=== PATIENT | male | born 1950 | race American Indian/Alaskan Native ===

== ENCOUNTER 2017-07-25 16:19 | Emergency (ER) | payer SELFPAY ==
--- NOTE | 2017-07-25 17:31 | XRay Report ---
FINAL REPORT EXAM: XR HAND 3+V RT HISTORY: deformity to right index finger.fell down stairs TECHNIQUE: AP, lateral, and oblique views of the right hand PRIORS: None. FINDINGS: There is an acute dislocation involving the 2nd proximal interphalangeal joint. The middle phalanx is displaced dorsally and slightly overrides the proximal phalanx. There is an acute avulsion fracture involving the base of the 2nd middle phalanx along the volar aspect. Overlying soft tissue swelling is seen. No radiopaque foreign bodies are seen. IMPRESSION: Acute dislocation involving the 2nd proximal interphalangeal joint. There is an avulsion fracture involving the volar base of the 2nd middle phalanx.
--- NOTE | 2017-07-25 23:48 | Emergency Department Report ---
ED Fall HPI - General Chief Complaint: Extremity Injury, Upper Stated Complaint: RIGHT INDEX FINGER INJURED Time Seen by Provider: 07/25/17 23:33 Source: patient, family Mode of arrival: Ambulatory Limitations: Other (the patient is demented. The patient is a poor historian. 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 Patient's believes the fall happened at approximately 4: 00 PM on July 25. No other complaints, patient's indicates no loss of consciousness, nausea, vomiting or any other symptom with the exception of right finger pain, sources at the patient appears to be his normal mental status. MD Complaint: fall -: Sudden Fall From: other (unknown) When Fall Occurred: just prior to arrival Fall Witnessed: no Place Fall Occurred: home Loss of Consciousness: unsure Symptoms Prior to Fall: other (unknown) Location: other (right hand/pointer finger) Location - Extremities: Right: Hand Severity: Unable to Determine (patient unable to describe exacerbating or relieving factors) Quality: other (per hpi) Context: other (per hpi) Associated Symptoms: other (per hpi) - Related Data Allergies Allergy/AdvReac Type Severity Reaction Status Date / Time No Known Allergies Allergy Unverified 07/25/17 16:37 ED Review of Systems ROS: Stated complaint: RIGHT INDEX FINGER INJURED Other details as noted in HPI ED Past Medical Hx - Past Medical History Additional medical history: dementia - Surgical History Past Surgical History?: No - Social History Smoking Status: Former Smoker Substance Use Type: None ED Physical Exam - General Limitations: Physical Limitation General appearance: alert, in no apparent distress - Head Head exam: Present: atraumatic, normocephalic - Eye Eye exam: Present: normal appearance, EOMI - ENT ENT exam: Present: normal exam, normal orophraynx, mucous membranes moist, normal external ear exam - Neck Neck exam: Present: normal inspection, full ROM. Absent: tenderness, meningismus - Respiratory Respiratory exam: Present: normal lung sounds bilaterally. Absent: respiratory distress - Cardiovascular Cardiovascular Exam: Present: regular rate, normal rhythm, normal heart sounds. Absent: bradycardia, tachycardia, irregular rhythm, systolic murmur, diastolic murmur, rubs, gallop - GI/Abdominal GI/Abdominal exam: Present: soft, normal bowel sounds. Absent: distended, tenderness, guarding, rebound, rigid, pulsatile mass - Rectal Rectal exam: Present: deferred - Extremities Exam Extremities exam: Present: normal capillary refill. Absent: normal inspection ( knee right pointer finger has a dorsal dislocation that is tender. 2+ pulses noted in the bilateral upper extremities. There is a left anterior knee abrasion. The pelvis is stable. There is no long bony tenderness.), tenderness (there is a left upper extremity arm contracture which is chronic), pedal edema, joint swelling, calf tenderness - Back Exam Back exam: Present: normal inspection, full ROM. Absent: tenderness, CVA tenderness (R), paraspinal tenderness, vertebral tenderness - Neurological Exam Neurological exam: Present: alert, other (Extraocular movements intact. Tongue midline. No facial droop. Facial sensation intact to light touch in the V1, V2 , V3 distribution bilaterally. 5 and 5 strength in 4 extremities.. Sensation is intact to light touch in 4 extremities.). Absent: motor sensory deficit - Psychiatric Psychiatric exam: Present: normal affect, normal mood - Skin Skin exam: Present: warm, dry, intact, normal color. Absent: rash ED Course Vital Signs 07/25/17 16:37 Temperature 98.1 F Pulse Rate 70 Respiratory 16 Rate Blood Pressure 164/87 O2 Sat by Pulse 100 Oximetry - Reevaluation(s) Reevaluation #1: 07/26/17 00:48 Differential diagnosis, including not limited to: Right index finger dislocation , mechanical fall, intracranial injury Assessment and plan: 67-year-old male who is minimally verbal, demented, status post unwitnessed fall, has been observed in the ER for about 8 hours after the fall, a noncontrast CT scan of the brain was negative, his endorses that he appears to be at his baseline, and the right pointer/index finger dislocation was reduced, and placed in a splint, early mobilization is recommended to follow-up with outpatient orthopedist. - Procedure Description Procedures done: Gentle digital and distal traction was applied to the right pointer finger, and the dislocated phalanx was reduced with a clunk. The patient tolerated the procedure well. ED Medical Decision Making - Lab Data Vital Signs 07/25/17 16:37 Temperature 98.1 F Pulse Rate 70 Respiratory 16 Rate Blood Pressure 164/87 O2 Sat by Pulse 100 Oximetry - Radiology Data Radiology results: report reviewed, image reviewed interpreted by me: Noncontrast CT scan of the brain is negative, interpreted by radiology noncontrast CT scan of the brain is negative. Initial x-ray of the right hand demonstrates a volar avulsion fracture over the second middle phalanx, and a dorsal dislocation of the index finger at the proximal interphalangeal joint. Postreduction x-ray demonstrates appropriate reduction of the index finger. Critical care attestation.: If time is entered above; I have spent that time in minutes in the direct care of this critically ill patient, excluding procedure time. ED Disposition Clinical Impression: Finger dislocation, History of fall Disposition: TO HOME OR SELFCARE Is pt being admited?: No Does the pt Need Aspirin: No Condition: Stable Instructions: Fall Prevention (ED), Finger Dislocation (ED) Additional Instructions: Keep the finger splint in place. Follow up with an orthopedist within 5-7 days. Continue current outpatient medications. Return to the ER right away with fevers, chills, lethargy, irritability, projectile vomiting, change in mental status, confusion, inability to tolerate liquid feeds Referrals: JADEN COOL MD [Primary Care Provider] - 3-5 Days UNA LOWE MD [Staff Physician] - 3-5 Days
--- NOTE | 2017-07-26 00:14 | Cat Scan Report ---
FINAL REPORT EXAM: CT HEAD/BRAIN WO CON HISTORY: fall, dementia TECHNIQUE: CT evaluation was performed of the head without the use of intravenous contrast administration. PRIORS: None. FINDINGS: Mild diffuse periventricular white matter hypodensity compatible with chronic small vessel ischemic change. Mild diffuse brain parenchymal atrophy, with mild prominence of the CSF-containing spaces is likely secondary to atrophy. No hemorrhage, mass effect,or herniation. Atherosclerotic calcifications in the distal internal carotid and vertebral arteries. No calvarial lesions. IMPRESSION: No CT evidence of acute intracranial process or displaced skull fracture. CT findings compatible with chronic small vessel ischemic disease.
--- NOTE | 2017-07-26 00:40 | XRay Report ---
FINAL REPORT EXAM: XR FINGER(S) 2+V RT HISTORY: post reduction; rt 2nd finger TECHNIQUE: Two views of the right hand: AP and lateral projections. PRIORS: Radiographs dated 07/25/2017 at 1050 hours. FINDINGS: Interval relocation of the index finger proximal interphalangeal joint. A volar avulsion fracture is noted. Suggested involvement or approximately 25 percent of the volar articular surface of the middle phalanx. The remaining articular surfaces intact. Concomitant soft tissue swelling. 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 Additional moderate degenerative changes of the distal radial ulnar joint mild degenerative changes of the interphalangeal joints. Corticated ossicle at the ulnar margin of the proximal 5th metacarpal. IMPRESSION: Interval relocation of the index finger proximal interphalangeal joint, weapons officer is now anatomic. Volar avulsion seen on the prior exam again noted and there is concomitant soft tissue swelling. 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
[2017-07-26 00:59] VITALS: BP 159/82
== END 2017-07-26 00:59 | disposition home or self-care (01) ==
LOC: ED 16:19
DX: S63.280A Dislocation of proximal interphalangeal joint of right index finger, initial encounter (principal); F03.90 Unspecified dementia, unspecified severity, without behavioral disturbance, psychotic disturbance, mood disturbance, and anxiety; Z87.891 Personal history of nicotine dependence; W18.30XA Fall on same level, unspecified, initial encounter; Y93.89 Activity, other specified; Y99.8 Other external cause status; Y92.098 Other place in other non-institutional residence as the place of occurrence of the external cause
CPT/HCPCS: 70450

== ENCOUNTER 2017-08-07 14:47 | Emergency (ER) | payer OTHER ==
[2017-08-07] MEDS ORDERED: NACL 0.9% 1000 ML 1,000 ML IV ONE (15:21)
[2017-08-07] MEDS ORDERED: KEPPRA 1,000 MG/NS 0.75% 100ML 1,000 MG/100 ML BAG IV ONE (15:21)
--- NOTE | 2017-08-07 15:28 | Emergency Department Report ---
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 The patient is accompanied by his who provides recent history. She reports that approximately 30 minutes to 1 hour prior to arrival, while driving home from the store, the patient suddenly exhibited shaking/seizure-like activity, severe, lasting for 10-15 seconds, several resolving, and associated with subsequent disorientation and confusion. She states that the patient's symptoms have improved with time, and the patient is nearly back to baseline. The patient denies fever, head injury, headache, neck pain, neck stiffness, vision or hearing changes, smell or taste changes, paresthesias, facial drooping, slurred speech, urine or bowel incontinence or retention, or other focal neurological deficit. ED Past Medical Hx - Past Medical History Hx CVA: Yes Additional medical history: dementia - Social History Smoking Status: Former Smoker Substance Use Type: Alcohol - Medications Home Medications: Home Medications Medication Instructions Recorded Confirmed Last Taken Type levETIRAcetam [Keppra TAB] 500 mg PO BID #60 tablet 08/07/17 Unknown Rx ED Review of Systems ROS: Stated complaint: AMS Other details as noted in HPI Constitutional: denies: fever ENT: denies: throat or neck pain Respiratory: denies: cough, shortness of breath Cardiovascular: denies: chest pain Endocrine: denies unexplained weight loss or gain Gastrointestinal: denies: abdominal pain, nausea Genitourinary: denies: dysuria Musculoskeletal: denies: leg swelling Skin: denies: rash Neurological: reports seizure and confusion denies: headache Hematological/Lymphatic: denies: easy bleeding or easy bruising Psych: denies sadness or hopelessness Physical Exam - Physical Exam Vital Signs: Vital Signs 08/07/17 14:53 Temperature 96.7 F L Pulse Rate 81 Respiratory 20 Rate Blood Pressure 130/95 O2 Sat by Pulse 93 Oximetry Physical Exam: General: well-nourished, well-developed, no acute distress Head: Normocephalic, atraumatic Eyes: normal sclera ENT: Mucous membranes are pale and dry Neck: No neck stiffness, no cervical adenopathy Respiratory: Breath sounds equal bilaterally, no wheezing, rales, or rhonchi Cardio: S1 and S2 present, no murmurs, rubs, gallops, capillary refill is delayed Abdomen: Normoactive bowel sounds, soft abdomen, no rigidity, no guarding or rebound tenderness Chest WALL/Back: No tenderness to palpation of the chest wall, no CVA tenderness with percussion Musc: No pitting edema Skin: No rash Neuro: alert oriented x2, normal cognition, slow and mildly slurred speech (at patient baseline per at bedside), PERRL, EOM intact, no facial drooping, no uvula or tongue deviation on protrusion, no deficit with rotation of neck or shoulder shrug, no gross motor deficit change from baseline in the upper or lower extremities with flexion or extension at the shoulder, elbow, wrist, hip, knee, or ankle bilaterally, no obvious gross sensation deficit to crude touch or 2 pt discrimination, 2+ symmetric reflexes on DTR testing, no coordination deficit with [id number] or [id number] testing, Babinski downgoing Psych: Normal affect ED Course Vital Signs 08/07/17 14:53 Temperature 96.7 F L Pulse Rate 81 Respiratory 20 Rate Blood Pressure 130/95 O2 Sat by Pulse 93 Oximetry ED Medical Decision Making - Lab Data Result diagrams: 08/07/17 15:40 08/07/17 15:40 - Medical Decision Making The patient was seen and examined by myself. The patient is placed on a laboratory monitor and continuous pulse ox. On initial evaluation, the patient was found to be in no distress. Evaluation orders were placed. The patient is given normal saline fluid bolus for treatment of dehydration and Keppra for treatment of suspected seizure. CT scan the head is unremarkable. Lab results are grossly unremarkable. The patient was monitored in the emergency department for greater than 2 hours without any further seizure-like activity. The patient was reevaluated and reported that their symptoms were markedly improved. The patient is stable for discharge with outpatient follow-up. The patient is given follow-up and return instructions. The patient expressed understanding and agreed with the plan. The patient is discharged in stable condition. Critical care attestation.: If time is entered above; I have spent that time in minutes in the direct care of this critically ill patient, excluding procedure time. ED Disposition Clinical Impression: Seizure, Dehydration Disposition: DC-01 TO HOME OR SELFCARE Is pt being admited?: No Does the pt Need Aspirin: No Condition: Stable Instructions: Epilepsy (ED) Referrals: PAM BOLANOS MD [Staff Physician] - 3-5 Days LING JOHNSON MD [Referring] - 3-5 Days Time of Disposition: 19:26
--- NOTE | 2017-08-07 16:06 | Cat Scan Report ---
FINAL REPORT EXAM: CT HEAD/BRAIN WO CON HISTORY: AMS TECHNIQUE: CT of the Head without IV contrast. PRIORS: None currently available. FINDINGS: Decreased attenuation regions in the periventricular and subcortical white matter are nonspecific and may represent small vessel ischemic disease, encephalopathy, edema, or a demyelinating process. Small vessel ischemic disease is more likely. Vascular calcifications. [id number] atrophy. Slightly asymmetrical in the frontal and temporal regions. There is no evidence for acute ischemia. There is no hemorrhage. There is no midline shift. There is no hydrocephalus. There is no mass. Age appropriate clark-white matter attenuation is noted. There is no calvarial fracture. The temporal bones demonstrate aerated mastoid air cells. The middle ears appear unremarkable. Paranasal sinuses are unremarkable. Right chasidy bullosa noted. Globes are intact. IMPRESSION: No acute intracranial findings. Chronic ischemic disease. Asymmetrical atrophy, mild to moderate. Please correlate for possible frontal temporal dementia.
[2017-08-07 16:17] LABS: Basophils % (Auto) 0.7 % (0.0-1.8); Eosinophils % (Auto) 0.7 % (0.0-4.3); Hematocrit 42.9 % (35.5-45.6); Hemoglobin 13.3 gm/dl (11.8-15.2); Lymphocytes # (Auto) 1.2 K/mm3 (1.2-5.4); Lymphocytes % (Auto) 27.4 % (13.4-35.0); Mean Corpuscular HGB Conc 31 % (32-34); Mean Corpuscular Volume 77 fl (84-94); Monocytes # (Auto) 0.5 K/mm3 (0.0-0.8); Monocytes % (Auto) 12.1 % (0.0-7.3); Platelet Count 259 K/mm3 (140-440); Red Blood Count 5.58 M/mm3 (3.65-5.03); Red Cell Distribution Width 16.4 % (13.2-15.2)
[2017-08-07 16:18] LABS: Mean Corpuscular Hemoglobin 24 pg (28-32)
[2017-08-07 16:51] LABS: Alanine Aminotransferase 16 units/L (7-56); Albumin 4.4 g/dL (3.9-5); BUN/Creatinine Ratio 17; Blood Urea Nitrogen 20 mg/dL (9-20); Calcium 9.3 mg/dL (8.4-10.2); Hemolysis Index 17
[2017-08-07 18:14] LABS: Bilirubin,Urine NEG (Negative); Blood,Urine NEG (Negative); Color,Urine Yellow (Yellow); Hyaline Casts,Urine 1 /LPF; Mucus,Urine FEW /HPF; Protein,Urine <15 mg/dL mg/dL (Negative); Urobilinogen,Urine < 2.0 mg/dL (<2.0)
[2017-08-07 19:43] VITALS: BP 130/81
== END 2017-08-07 19:44 | disposition home or self-care (01) ==
LOC: ED 14:47
DX: R56.9 Unspecified convulsions (principal); E86.0 Dehydration; F03.90 Unspecified dementia, unspecified severity, without behavioral disturbance, psychotic disturbance, mood disturbance, and anxiety; Z87.891 Personal history of nicotine dependence; Z86.73 Personal history of transient ischemic attack (TIA), and cerebral infarction without residual deficits
CPT/HCPCS: 36415; 70450; 80053; 81001; 82550; 82962; 85025; 93005; 93010; 96365; 99285; J1953; J7030